=== PATIENT | male | born 1970 | race Caucasian/White ===

== ENCOUNTER 2017-07-22 15:46 | Emergency (ER) | payer OTHER ==
[~2017-07-22] VITALS: Wt 79.8 kg
[2017-07-22] MEDS ORDERED: IBUPROFEN 800 MG TAB PO ONE (20:00)
[2017-07-22] MEDS ORDERED: IBUP-1542 PO (20:00)
--- NOTE | 2017-07-22 20:01 | ERD ---
ER Documentation Chief Complaint Chief Complaint left sided chest pain this morning that resolved now, sent by pmd HPI Patient is a 47-year-old male with no medical problems who presents with chest pain. The patient was sent from the [facility] [place] for chest pain. The note that was sent with him says "I doubt cardiac etiology but the patient was sent to the ER for evaluation". The patient has chest pain which started yesterday. It is left-sided. He said that it was a less than 1 out of 10. It comes and goes. It sharp in nature. It lasts 10-15 seconds. He does not have pain currently. He has had no treatment yet. Upon review of old medical records this is the patient's first visit to the emergency department. ROS All systems reviewed and are negative except as per history of present illness. Medications Home Meds Active Scripts Ibuprofen* (Motrin*) 600 Mg Tab, 600 MG PO Q6H Y for PAIN AND OR ELEVATED TEMP, #30 TAB Prov:YOVANA DONALD MD 07/22/17 Allergies Allergies: Coded Allergies: No Known Allergy (Unverified , 07/22/17) PMhx/Soc Medical and Surgical Hx: pt denies Medical Hx History of Surgery: Yes (left foot surgery) Anesthesia Reaction: No Hx Neurological Disorder: No Hx Respiratory Disorders: No Hx Cardiac Disorders: No Hx Psychiatric Problems: No Hx Miscellaneous Medical Probl: No Hx Alcohol Use: Yes (1-4 drinks daily) Hx Substance Use: No Hx Tobacco Use: No Smoking Status: Never smoker FmHx Family History: No coronary disease Physical Exam Vitals Vital Signs Date Time Temp Pulse Resp B/P Pulse Ox O2 Delivery O2 Flow Rate FiO2 07/22/17 20:19 62 17 141/92 100 Room Air 07/22/17 15:51 98.5 82 18 153/87 100 Physical Exam Const: No acute distress Head: Atraumatic Eyes: Normal Conjunctiva ENT: Normal External Ears, Nose and Mouth. Neck: Full range of motion..~ No meningismus. Resp: Clear to auscultation bilaterally Cardio: Regular rate and rhythm, no murmurs Abd: Soft, non tender, non distended. Normal bowel sounds Skin: No petechiae or rashes Back: No midline or flank tenderness Ext: No cyanosis, or edema Neur: Awake and alert Psych: Normal Mood and Affect Results 24 hrs Current Medications Medications (Trade) Dose Ordered Sig/Balaji Route PRN Reason Start Time Stop Time Status Last Admin Dose Admin Ibuprofen (Motrin) 800 mg ONCE ONCE PO 07/22/17 20:00 07/22/17 20:01 DC 07/22/17 19:44 Procedures/MDM EKG read by me: Rate/Rhythm: Regular rate and rhythm at a rate of 65 Intervals: Normal Impression: No evidence of ischemia or arrhythmia Chest X-ray 1V Interpreted by me: Soft Tissue: No acute abnormalities Bones: No acute abnormalities Mediastinum/Cardiac Silhouette/Lungs: No acute abnormalities Patient is a 47-year-old male with no cardiac risk factors who presents with chest pain. His chest pain is very atypical and only last 10-15 seconds at a time. The patient was given ibuprofen for pain and inflammation. EKG and chest x-ray are negative. At this point I believe outpatient management is appropriate. I doubt acute coronary syndrome, pneumonia, pneumothorax, pulmonary embolism, or aortic dissection. The patient will need close follow- up with a primary doctor within 24-48 hours. The patient can return for any worsening symptoms. The patient will be given a prescription for ibuprofen for pain. Departure Diagnosis: Primary Impression: Chest pain Chest pain type: unspecified Qualified Code: R07.9 - Chest pain, unspecified type Condition: Fair Patient Instructions: Chest Pain, Uncertain Cause Referrals: Your doctor Additional Instructions: Llame al doctor MAALEX y poncho farheen MIGUEL PARA DENTRO DE 1-2 WHELAN.Dgale a la secretaria que nosotros le instruimos hacer esta miguel.Avise o llame si rico condicin se empeora antes de la miguel. Regresa aqui si peor o no mejor. YOVANA DONALD MD Jul 22, 2017 20:01
[2017-07-22 20:19] VITALS: BP 141/92; PULSE 62; RESP 17
--- NOTE | 2017-07-22 20:30 | RADRPT ---
PROCEDURE: XR Chest. CLINICAL INDICATION: Chest pain. TECHNIQUE: Single frontal view. COMPARISON: None. FINDINGS: There is a benign calcified granuloma in the left lung apex. The lungs are otherwise clear. The heart size is normal. There is no pleural effusion. There is no pneumothorax. IMPRESSION: 1. Benign calcified granuloma in the left lung apex. 2. Otherwise unremarkable chest radiograph. RPTAT: QQ .Frank Bobby MD, MD Date Time Electronically viewed and signed by .Frank Bobby MD, on 07/22/2017 20:29 .R/
== END 2017-07-22 20:32 | disposition home or self-care (01) ==
LOC: E/R 15:46
DX: R07.89 Other chest pain (principal)
CPT/HCPCS: 71010; 93005